=== PATIENT | male | born 1975 | race Caucasian/White ===

== ENCOUNTER 2020-09-08 00:12 | Inpatient (IN) | payer MEDICARE, MEDICAID, SELFPAY ==
[2020-09-08] VITALS (19 sets, daily range): BP systolic 85–105; BP diastolic 55–70; PULSE 70–98; RESP 12–21; TEMP 36.7–37.1; O2SAT 98–100; BMI 29.8
--- NOTE | 2020-09-08 00:19 | CTR_ITS ---
PROCEDURE INFORMATION: Exam: CT Abdomen And Pelvis With Contrast Exam date and time: 09/08/2020 12:19 AM Age: 45 years old Clinical indication: Other: Penile bleeding; Patient HX: Gross bleeding from penis. History of multiple albright catheterizations and recurrent utis. Per caregiver has not had a albright placed in several months. Patient unable to follow breathing instructions due to MR. ; Additional info: Abd pain TECHNIQUE: Imaging protocol: Computed tomography of the abdomen and pelvis with contrast. Radiation optimization: All CT scans at this facility use at least one of these dose optimization techniques: automated exposure control; mA and/or kV adjustment per patient size (includes targeted exams where dose is matched to clinical indication); or iterative reconstruction. Contrast material: OMNI 300; Contrast volume: 95 ml; Contrast route: INTRAVENOUS (IV); COMPARISON: No relevant prior studies available. RADIATION DOSE METRICS: Total DLP (mGy-cm): 1938.08 FINDINGS: Liver: Normal. No mass. Gallbladder and bile ducts: Normal. No calcified stones. No ductal dilation. Pancreas: Normal. No ductal dilation. Spleen: Normal. No splenomegaly. Adrenal glands: Normal. No mass. Kidneys and ureters: Severe right hydronephrosis with no stones suggesting reflux versus outlet obstruction. Stomach and bowel: Unremarkable. No obstruction. No mucosal thickening. Appendix: No evidence of appendicitis. Intraperitoneal space: Unremarkable. No free air. No significant fluid collection. Vasculature: Unremarkable. No abdominal aortic aneurysm. Lymph nodes: Unremarkable. No enlarged lymph nodes. Urinary bladder: 21 cm enlarged suggesting possible outlet obstruction versus neurogenic bladder. Large 9.0 x 8.3 x 6.3 cm hematoma in the dependent portion of the urinary bladder. Reproductive: Nonspecific prostate calcifications within otherwise small prostate. Bones/joints: Unremarkable. No acute fracture. Soft tissues: Unremarkable. CT/CT abdomen pelvis w con* [id number] IMPRESSION: 1. Severe right hydronephrosis with no stones suggesting reflux versus outlet obstruction. 2. 21 cm enlarged suggesting possible outlet obstruction versus neurogenic bladder. 3. Large 9.0 x 8.3 x 6.3 cm hematoma in the dependent portion of the urinary bladder. Radiation Dose CTDIVOL = (mGy): DLP = 1938.08 (mGy-cm)
--- NOTE | 2020-09-08 00:22 | W.ED.GENADLT ---
HPI - General Adult General: Chief complaint: Urogenital-Male Stated complaint: HEMORRHAGE FROM THE GENITALS Time Seen by Provider: 09/08/20 00:17 History of Present Illness: HPI narrative: This patient is a 45-year-old male that has a history of MR lives in a care facility in the local area. Reportedly the patient with the bed unknown problems but upon being bed check they found patient covered in blood. Patient appeared to have blood coming from his penis. Patient does have a history of wearing urinary catheters and has had a tendency to pull those catheters out. But caregivers at the care facility states the patient has not had a urinary catheter in about 5 months. However bleeding does appear to be traumatic. Will do medical evaluation treat as needed Onset (ago): minute(s) Location: genitals Associated symptoms: Deny chest pain, dyspnea, headache(s), nausea, rash, palpitations or vomiting Review of Systems General: Reports: 10 or more systems reviewed and unremarkable except in HPI and below Const: Denies: fever(s), chills, body aches or fatigue Eyes: Denies: change in vision or blurry vision ENMT: Denies: throat pain, hoarseness or mouth pain Card: Denies: chest pain, palpitations, irregular heart rhythm, edema, swelling of feet/ankles or lightheadedness Resp: Denies: dyspnea, productive cough, non-productive cough, wheezing or pain on inspiration GI: Denies: abdominal pain, nausea or vomiting : Reports: other (Penile bleeding); Denies: flank pain, dysuria, urinary frequency, urinary urgency or urinary hesitancy Musc: Denies: neck pain, back pain, extremity pain, extremity swelling, joint pain, joint swelling, joint redness, joint warmth or limited range of motion Skin/Breast: Denies: rash, pruritus, erythema or skin tenderness Neuro: Denies: headache(s), numbness in extremities or weakness in extremities Psych: Denies: anxiety or depression Physical Exam Const: COMMON NORMALS: no acute distress, average body habitus, patient oriented x3, no limitations, healthy appearing, alert and well nourished HENMT: COMMON NORMALS: normocephalic, atraumatic, hearing grossly normal bilaterally, external ears normal, EAC's normal, TM's normal bilaterally, Normal external nose present, Normal nasal mucous membranes and turbinates present, moist oral mucous membranes, oropharynx normal, dentition normal and gingiva normal HEAD & SCALP: normocephalic and atraumatic NOSE: Normal external nose present and Normal nasal mucous membranes and turbinates present EXTERNAL EAR: Yes external ears normal EXTERNAL AUDITORY CANAL: EAC's normal TYMPANIC MEMBRANE: TM's normal bilaterally Neck/C-Spine: COMMON NORMALS: full ROM, no lymphadenopathy, supple, no meningeal signs, no JVD, Thyroid normal and No carotid bruits THYROID: Thyroid normal Chest: COMMONS NORMALS: normal inspection of the chest, normal palpation of entire chest wall, normal inspection of the breasts and normal palpation of the breasts Breast/axilla inspection: Yes normal inspection of the breasts BREAST/AXILLA PALPATION: Yes normal palpation of the breasts Resp: COMMON NORMALS: normal respiratory effort, No retractions, No use of accessory muscles, clear to auscultation bilaterally and percussion normal AUSCULTATION: clear to auscultation bilaterally PERCUSSION: percussion normal Cardio: COMMON NORMALS: no JVD, regular rate, regular rhythm, S1 normal heart sound present, S2 normal heart sound present, No gallops present (Cardio), No clicks present (Cardio), No murmurs present (Cardio), No rub (Cardio) and Peripheral pulses 2+ throughout RATE: regular rate RHYTHM: regular rhythm HEART SOUNDS: S1 normal heart sound present and S2 normal heart sound present PERIPHERAL PULSES: Peripheral pulses 2+ throughout GI: COMMON NORMALS: Normal to inspection, nondistended, normoactive bowel sounds present, Soft to palpation, non-tender, No hepatosplenomegaly present, no masses and no bruits PALPATION: Yes Soft to palpation and Yes No hepatosplenomegaly present : COMMON NORMALS: Yes no CVA tenderness BLADDER/KIDNEY EXAM: Yes no CVA tenderness MALE GROIN/PERINEUM EXAM: Yes other (Patient has significant blood and blood clots in the area of the penis and ) MEATUS: Blood at meatus present Back/Pelvis: COMMON NORMALS: no CVA tenderness, thoracic and lumbar spine normal to inspection, no thoracic nor lumbar tenderness, thoraco-lumbar ROM normal and straight leg raise negative bilaterally Extremity: COMMON NORMALS: normal to inspection, full ROM, capillary refill normal, no joint enlargement, no clubbing, cyanosis or edema, no calf tenderness and no pedal edema Neuro: COMMON NORMALS: patient oriented x3 SENSORIUM/ORIENTATION: Yes alert MENINGEAL SIGNS: Yes no meningeal signs Course Reevaluation(s): Reevaluation #1: I have discussed at length with patient's caregiver is agreeable states understanding patient be admitted Time: 01:49 Consultations: Consultation #1: I did speak with Dr. Simmons who requested patient go ahead and get a Prieto catheter. He believes the CT scan is showing chronic urinary retention with bleeding. He request that we start with an 18-Tajik catheter in case there is any urinary stricture and irrigate bladder to get a lot of blood clots out. May go up and catheter size as needed. He states he will see as a bilingual sales consultant. Requested patient be admitted to the hospitalist for medical management. Time: 01:35 Consultation #2: I have discussed the link with who will admit the patient for medical management. Time: 01:49 Vital Signs: Vital signs: Vital Signs Temperature 98.1 F 09/08/20 00:17 Pulse Rate 82 09/08/20 01:24 Respiratory Rate 16 09/08/20 01:24 Blood Pressure 87/70 09/08/20 00:17 Pulse Oximetry 100 09/08/20 01:24 MDM - General Adult MDM Narrative: Medical decision making narrative: This patient is a 45-year-old male that has a history of MR lives in a care facility in the local area. Reportedly the patient with the bed unknown problems but upon being bed check they found patient covered in blood. Patient appeared to have blood coming from his penis. Patient does have a history of wearing urinary catheters and has had a tendency to pull those catheters out. But caregivers at the care facility states the patient has not had a urinary catheter in about 5 months. However bleeding does appear to be traumatic. Will do medical evaluation treat as needed I have discussed at length with patient's caregiver is agreeable states understanding patient be admitted I did speak with Dr. Simmons who requested patient go ahead and get a Prieto catheter. He believes the CT scan is showing chronic urinary retention with bleeding. He request that we start with an 18-Tajik catheter in case there is any urinary stricture and irrigate bladder to get a lot of blood clots out. May go up and catheter size as needed. He states he will see as a bilingual sales consultant. Requested patient be admitted to the hospitalist for medical management. I have discussed the link with who will admit the patient for medical management. Lab Data: Labs: Lab Results 09/08/20 09/08/20 09/08/20 Range/Units 00:32 00:32 00:32 WBC 8.9 (4.0-10.0) 10^3/ uL RBC 3.38 L (4.1-5.3) 10^6/u L Hgb 10.8 L (11.7-16.6) g/dL Hct 32.6 L (42.0-52.0) % MCV 96.4 H (80-94) fL MCH 32.0 (28.0-34.0) pg MCHC 33.1 (30.0-36.0) g/dL RDW 12.3 (12.1-15.1) % Plt Count 224 (130-400) 10^3/c mm MPV 9.5 (7.4-10.4) fL Neut % (Auto) 79.2 % Lymph % (Auto) 11.7 % [place] % (Auto) 6.8 % Eos % (Auto) 1.9 % Baso % (Auto) 0.3 % Neut # (Auto) 7.01 (1.8-7.7) 10^3/u L Lymph # (Auto) 1.0 (0.8-4.8) 10^3/u L [place] # (Auto) 0.6 (0.2-0.9) 10^3/u L Eos # (Auto) 0.2 (0.0-0.8) 10^3/u L Baso # (Auto) 0.0 (0.0-0.1) 10^3/u L Nucleated RBC % (a uto) 0 % Nucleated RBCs # 0.0 /100WBC PT 13.90 (12.1-14.9) SECO NDS INR 1.04 (0.8-1.2) APTT 26.6 (23.9-36.7) SECO NDS Sodium 138 (136-145) mmol/L Potassium 4.0 (3.5-5.1) mmol/L Chloride 103 (98-107) mmol/L Carbon Dioxide 27 (22-29) mmol/L Anion Gap 12.0 (5-19) BUN 16 (6-20) mg/dL Creatinine 0.9 (0.7-1.2) mg/dL GFR Calculation 90.4 (90-130) mL/min Glucose 141 H (65-115) mg/dL Calculated Osmolal ity 290 (285-295) mOsm/k g Calcium 9.4 (8.5-10.5) mg/dL Total Bilirubin 0.2 (0.15-1.2) mg/dL AST 18 (0-40) U/L ALT 19 (0-41) U/L Alkaline Phosphata se 54 (40-130) IU/L Total Protein 6.4 L (6.6-8.7) g/dL Albumin 4.1 (3.5-5.2) g/dL Globulin 2.3 (1.3-4.6) g/dL Imaging Data^: CT Abd/Pel: Attestation: I personally reviewed and interpreted this imaging study as follows: Radiologist's impression: FINDINGS: Liver: Normal. No mass. Gallbladder and bile ducts: Normal. No calcified stones. No ductal dilation. Pancreas: Normal. No ductal dilation. Spleen: Normal. No splenomegaly. Adrenal glands: Normal. No mass. Kidneys and ureters: Severe right hydronephrosis with no stones suggesting reflux versus outlet obstruction. Stomach and bowel: Unremarkable. No obstruction. No mucosal thickening. Appendix: No evidence of appendicitis. Intraperitoneal space: Unremarkable. No free air. No significant fluid collection. Vasculature: Unremarkable. No abdominal aortic aneurysm. Lymph nodes: Unremarkable. No enlarged lymph nodes. Urinary bladder: 21 cm enlarged suggesting possible outlet obstruction versus neurogenic bladder. Large 9.0 x 8.3 x 6.3 cm hematoma in the dependent portion of the urinary bladder. Reproductive: Nonspecific prostate calcifications within otherwise small prostate. Bones/joints: Unremarkable. No acute fracture. Soft tissues: Unremarkable. CT/CT abdomen pelvis w con* [id number] IMPRESSION: 1. Severe right hydronephrosis with no stones suggesting reflux versus outlet obstruction. 2. 21 cm enlarged suggesting possible outlet obstruction versus neurogenic bladder. 3. Large 9.0 x 8.3 x 6.3 cm hematoma in the dependent portion of the urinary bladder. Discharge Plan Discharge Patient Disposition: Admitted As Inpatient Clinical Impression: Acute urinary retention, Gross hematuria, Obstruction to urinary outflow Condition: Stable Coding Level of Care Code ED Dynamicist for Chg Fwd Exam Comprehensive
[2020-09-08] MEDS: iohexol 300 mg/mL 100 mL Btl IV (00:41)
[2020-09-08 00:53] LABS: Basophils % 0.3 %; Eosinophils # 0.2 10^3/uL (0.0-0.8); Eosinophils % 1.9 %; Hematocrit 32.6 % (42.0-52.0); Hemoglobin 10.8 g/dL (11.7-16.6); Lymphocytes % 11.7 %; Mean Corpuscular HGB Conc 33.1 g/dL (30.0-36.0); Mean Corpuscular Volume 96.4 fL (80-94); Mean Platelet Volume 9.5 fL (7.4-10.4); Monocytes # 0.6 10^3/uL (0.2-0.9); Monocytes % 6.8 %; Neutrophils # 7.01 10^3/uL (1.8-7.7); Neutrophils % 79.2 %; Nucleated Red Blood Cells % 0 %; Platelet Count 224 10^3/cmm (130-400); Red Blood Count 3.38 10^6/uL (4.1-5.3); Red Cell Distribution Width 12.3 % (12.1-15.1); White Blood Count 8.9 10^3/uL (4.0-10.0)
[2020-09-08 01:09] LABS: Alanine Aminotransferase 19 U/L (0-41); Albumin Level 4.1 g/dL (3.5-5.2); Alkaline Phosphatase 54 IU/L (40-130); Aspartate Amino Transferase 18 U/L (0-40); Blood Urea Nitrogen 16 mg/dL (6-20); Calcium 9.4 mg/dL (8.5-10.5); Carbon Dioxide 27 mmol/L (22-29); Chloride 103 mmol/L (98-107); Globulin 2.3 g/dL (1.3-4.6); Glomerular Filtration Rate 90.4 mL/min (90-130); Glucose 141 mg/dL (65-115); INR 1.04 (0.8-1.2); Osmolality Calculated 290 mOsm/kg (285-295); Partial Thromboplastin Time 26.6 SECONDS (23.9-36.7); Sodium 138 mmol/L (136-145); Total Bilirubin 0.2 mg/dL (0.15-1.2); Total Protein 6.4 g/dL (6.6-8.7)
[2020-09-08] MEDS: sodium chloride 0.9% 1,000 ML 999 ML IV ×2 (01:13→09:21)
--- NOTE | 2020-09-08 02:46 | PM.HP ---
Providers/Chief Complaint Chief Complaint: HEMORRHAGE FROM THE GENITALS History of Present Illness 45-year-old male with a past medical history significant for moderate cognitive delay, nalal glioma s/p resection, gastroesophageal reflux disease, and nephrolithiasis with prior outflow obstruction requiring right renal stent in 2008 and percutaneous nephrolithotomy who his presenting to the hospital with hematuria. Patient has a 24 hour caregiver Who provided history. Apparently she was called to the restroom after patient had noted significant gross hematuria. he has required Prieto catheter in the past due to retention however this was removed in June. Has not required intermittent catheterization per caregiver since. He is compliant with his Flomax and Proscar. Follows with [facility]. Laboratory workup arrival showed a WBC of 8.9, hemoglobin 10.8, hematocrit 32.6 and a platelet count of 224 INR 1.04. Sodium 138, potassium 4.0, chloride 103, bicarb 27, BUN 16 and creatinine of 0.9. AST of 18, ALT of [address] phosphatase [address] CT abdomen pelvis was performed which showed severe right hydronephrosis with no stone, bladder appeared to be enlarged measuring 21 cm with a large 9 x 8.3 x 6.3 cm hematoma in the dependent portion of the urinary bladder. Prieto catheter was placed neurology was consulted. Urology was consulted and recommended placement of a Prieto catheter. Shortly after placing patient had over 1600 cc output of gross hematuria. Additionally was passing clots as well. Review of Systems General: Reports: ROS unobtainable due to mental status Medications/Allergies Allergies Allergy/AdvReac Type Severity Reaction Status Date / Time acetaminophen [From [place]] Allergy Unknown Verified 09/08/20 00:25 hydrocodone [From [place]] Allergy Unknown Verified 09/08/20 00:25 Phenothiazines Allergy Unknown Verified 09/08/20 00:25 PFSH Acute PFSH: Medical History (Updated 09/08/20 @ 05:05 by Thao Ramos MD) Impaired cognitive ability Nephrolithiasis Surgical History (Updated 09/08/20 @ 05:06 by Thao Ramos MD) History of ureter stent Hx of cystoscopy Social History (Updated 09/08/20 @ 05:02 by Thao Ramos MD) Smoking and tobacco status: unknown if ever smoked Alcohol intake: unknown Substance/Drug Use: unknown Vitals/I&O/Wt Last Vital Signs Temp 98.1 F 09/08/20 00:17 Pulse 85 09/08/20 02:00 Resp 16 09/08/20 02:00 BP 95/65 09/08/20 02:00 Pulse Ox 100 09/08/20 02:00 Weight last 48 hrs Weight 83.915 kg Physical Exam Narrative: EXAM NARRATIVE: General-alert awake HEENT-grossly unremarkable CVS-regular rate rhythm Chest -clear to auscultation Abdomen- soft nontender nondistended - Prieto catheter placed with gross hematuria noted in bag Extremities-no edema Urinary Catheter Management^: Prieto: Cath Placed During This Visit: yes Urinary Catheter Date of Insertion: 09/08/20 Urinary Catheter Time of Insertion: 02:15 Data : 09/08/20 00:32 09/08/20 00:32 A&P Assessment and plan (1) Gross hematuria: Urology consulted Prieto placed in ER No antiplatelets/ anticoagulation > 1600 cc blood urine output May require CBI initiation Will monitor h/h q6hr NPO NS at 75cc/hr Status: Acute (2) Obstruction to urinary outflow: Resume flomax 0.4 mg PO daily Proscar 5 mg PO daily Prieto placement Status: Acute (3) DVT prophylaxis: SCDS only Status: Acute Attestations Medical Necessity Statement*: Anticipate over 2 midnights stay in hospital for evaluation treatment of gross hematuria Time Spent in Patient Care: Greater than 35 minutes (>than 50% of time spent in counselling and/or direct pt care on unit). Coding Level of Care Code Acute Tapper Balance Wheel Screw Hole for Jovanny Ceja Diagnoses Gross hematuria R31.0 Obstruction to urinary outflow N13.9 DVT prophylaxis Z29.9
--- NOTE | 2020-09-08 05:53 | PC.NURSE ---
When rounding on patient, patient had pulled out IV, pulled off his wristbands and vitals monitoring devices.
[2020-09-08 05:56] LABS: Hematocrit 28.5 % (42.0-52.0); Hemoglobin 9.4 g/dL (11.7-16.6)
[2020-09-08] MEDS: sodium chloride 0.9% 1,000 ML 75 ML IV ×2 (05:58→19:52)
--- NOTE | 2020-09-08 06:57 | PC.NURSE ---
Sitter at door way
--- NOTE | 2020-09-08 07:44 | PC.NURSE ---
Sitter at bedside. NO acute distress or changes. Continue to monitor
--- NOTE | 2020-09-08 08:24 | PC.NURSE ---
Sitter at bedside. No acute changes noted
--- NOTE | 2020-09-08 08:50 | PC.PHAR ---
pt unable to verify medications-pts caregiver verified meds
[2020-09-08] MEDS: tamsulosin 0.4 mg Capsule PO (09:05)
--- NOTE | 2020-09-08 09:11 | PC.NURSE ---
Sitter at bedside. No acute changes noted
--- NOTE | 2020-09-08 09:13 | PC.NURSE ---
albright catheter irrigated with 500ml of NS. copious amounts of blood clots in urine. pt hypotensive. informed ED physician. orders received.
--- NOTE | 2020-09-08 10:07 | PC.NURSE ---
Sitter in room Fluids infusing No acute changes noted
--- NOTE | 2020-09-08 11:18 | PC.NURSE ---
ED sitter has left, since family member in room with pt.
[2020-09-08 11:50] LABS: Hematocrit 27.4 % (42.0-52.0)
--- NOTE | 2020-09-08 15:34 | PM.PN ---
Subjective Subjective: Interval history: Patient was seen in the ER, he complains of left hand pain which he attributing to fall that he sustained in his bathroom yesterday Not complaining of any other complaints Noticed norberto hematuria in his urine bag requested ER physician to do bladder irrigation He is not on CBI for now I have notified Dr. Simmons Requested 2 unit PRBC for 2 g drop in his H&H in last 12 hours Vitals/I&O/Wt Last Vital Signs Temp 98.6 F 09/08/20 12:00 Pulse 79 09/08/20 15:08 Resp 16 09/08/20 15:08 BP 105/62 09/08/20 15:08 Pulse Ox 100 09/08/20 15:08 09/08/20 09/08/20 09/08/20 06:59 14:59 22:59 Intake Total 1000 / 1000 1000 / 1000 Output Total 675 / 675 Balance 325 / 325 1000 / 1000 Weight last 48 hrs Weight 83.915 kg Physical Exam Narrative: EXAM NARRATIVE: Patient is laying comfortably supine in his bed Urine bag with norberto hematuria Complaining of left hand pain otherwise no obvious hematoma or fracture noted S1, S2 sinus rhythm no signs of murmur or fluid overload Abdomen soft with diminished bowel sounds Extremities without edema EOMI, PERRLA Able to follow my commands No acute neurological deficit appreciated during my evaluation Urinary Catheter Management^: Prieto: Cath Placed During This Visit: yes Reason for Continuing Indwelling Catheter: Acute Urinary Retention or Obstruction Urinary Catheter Date of Insertion: 09/08/20 Urinary Catheter Time of Insertion: 02:15 Data : 09/08/20 11:35 09/08/20 00:32 A&P Assessment and plan (1) Acute urinary retention: Status: Acute (2) Gross hematuria: Status: Acute (3) Obstruction to urinary outflow: Status: Acute Additional A&P Information Norberto hematuria Requested 2 unit PRBC for 2 g drop in less than 12 hours Started blood pressure 105 mmHg Currently not on CBI irrigation Requested ER physician to do bladder irrigation in the ER N.p.o. for now Continue normal saline at maintenance rate Urology consulted Avoid DVT prophylaxis with anticoagulating agent Continue Flomax Patient is stating that he sustained a fall in his bathroom yesterday, complaining of left hand pain no obvious signs of fracture edema Will request imaging of thoracolumbar region, CT abdomen pelvis consistent with neurogenic bladder findings, with his recent fall rule out compression fracture Attestations Medical Necessity Statement*: Continue medical management for norberto hematuria Time Spent in Patient Care: 30mins Coding Level of Care Code Acute Senior Software Project Manager for Chg Fwd Diagnoses Acute urinary retention R33.8 Gross hematuria R31.0 Obstruction to urinary outflow N13.9
--- NOTE | 2020-09-08 15:41 | CTR_ITS ---
PROCEDURE INFORMATION: Exam: CT Lumbar Spine Without Contrast Exam date and time: 09/08/2020 3:41 PM Age: 45 years old Clinical indication: Injury or trauma; Fall; Blunt trauma (contusions or hematomas); Additional info: Fall neurogenic bladder TECHNIQUE: Imaging protocol: Computed tomography images of the lumbar spine without contrast. Radiation optimization: All CT scans at this facility use at least one of these dose optimization techniques: automated exposure control; mA and/or kV adjustment per patient size (includes targeted exams where dose is matched to clinical indication); or iterative reconstruction. COMPARISON: CT abdomen pelvis w con* [id number] 09/08/2020 12:36 AM RADIATION DOSE METRICS: Total DLP (mGy-cm): 1952.93 FINDINGS: Tubes, catheters and devices: Prieto catheter noted within the bladder. Vertebrae: No acute fracture. Normal alignment. Discs/Spinal canal/Neural foramina: Degenerative disc disease at L5-S1. Posterior disc bulge at L4-L5. No severe spinal canal stenosis. No significant neural foraminal narrowing. Mild facet arthropathy of the lower lumbar spine. Soft tissues: Unremarkable. CT/CT lumbar spine wo con* [id number] IMPRESSION: No acute osseous abnormalities of the lumbar spine. Radiation Dose CTDIVOL = (mGy): DLP = 1952.93 (mGy-cm)
--- NOTE | 2020-09-08 15:41 | CTR_ITS ---
PROCEDURE INFORMATION: Exam: CT Thoracic Spine Without Contrast Exam date and time: 09/08/2020 3:41 PM Age: 45 years old Clinical indication: Injury or trauma; Fall; Blunt trauma (contusions or hematomas); Additional info: Fall, neurogenic bladder TECHNIQUE: Imaging protocol: Computed tomography images of the thoracic spine without contrast. Radiation optimization: All CT scans at this facility use at least one of these dose optimization techniques: automated exposure control; mA and/or kV adjustment per patient size (includes targeted exams where dose is matched to clinical indication); or iterative reconstruction. COMPARISON: CT abdomen pelvis w con* [id number] 09/08/2020 12:36 AM RADIATION DOSE METRICS: Total DLP (mGy-cm): 1671.85 FINDINGS: Vertebrae: No acute fracture. Normal alignment. Discs/Spinal canal/Neural foramina: No significant disc protrusion. No severe spinal canal stenosis. No significant neural foraminal narrowing. Soft tissues: Unremarkable. CT/CT thoracic spin wo con* [id number] IMPRESSION: Unremarkable CT Spine. Radiation Dose CTDIVOL = (mGy): DLP = 1671.85 (mGy-cm)
[2020-09-08 17:34] LABS: Hematocrit 24.2 % (42.0-52.0); Hemoglobin 7.8 g/dL (11.7-16.6)
--- NOTE | 2020-09-08 19:12 | PM.CONSULT ---
Providers/Reason For Consult Consulting Physician/Specialty*: Urology/Simmons Reason for Consult*: 1. Urinary retention 2. Gross hematuria with bladder clots Attending Physician: Carlos Landaverde MD History of Present Illness History of Present Illness Cabrera Gillette is a 45 year old male evaluated for the first time by me today at the request of the emergency department. Patient is cognitively slow and lives in a residence home near the [facility] and apparently follows with urology at [facility] for history of recurrent urinary retention. He has had multiple episodes where catheter was placed for retention but none of those details are available to us. At times it sounds like he has accidentally or purposefully pulled the catheter out but other times the catheter was removed after what appeared to be therapeutic time. Last night he was admitted through the emergency department after being found with a large amount of what appeared to be bloody urine and clots. There was no evidence of instrumentation. He also was found to be somewhat hypotensive. And he was taken to the emergency department for further evaluation. A CT scan demonstrated a very distended bladder with bilateral hydroureteronephrosis demonstrating what appeared to be more chronic bladder outlet obstructive findings. Bladder was huge. There is a large amount of clot in the bladder. An 18 Ghanaian Prieto catheter was placed and bloody urine was obtained. Intermittent irrigation manually revealed clots. Never got clear. Tonight he still has an [address] There is urine but also clots in the tubing. Recommendation was made for larger catheter, manual irrigation and potentially CBI. PROCEDURE: Large bore Prieto catheter placement with clot evacuation via prolonged manual irrigation. A 22 Ghanaian three-way Prieto catheter was attempted to be placed after the 18 Ghanaian was removed but it was not able to be advanced beyond the bulbar urethra. This point a 20 Ghanaian three-way catheter was able to be advanced into the bladder and 20 cc was placed in the balloon. About 3 L of sterile water was utilized to manually lavage the bladder with a large amount of clot returned. Eventually only very small flecks of clot were irrigated and the irrigation remained for the most part clear. I expect that there still remains some clots but the catheter was functioning well. Further irrigation was recommended for the nursing staff overnight as needed. Continuous bladder irrigation with normal saline was set up and the rate was initially fast with tapering off as the urine/efflux cleared. Catheter was secured with a StatLock to his right thigh. He tolerated procedure very well. Recommendations: 1. Continue CBI overnight 2. Manual irrigation to clear more clots. 3. Medical management via hospitalist service. 4. Consider flexible bedside cystoscopy pending outcome of CBI. Review of Systems Const: Denies: fever(s) or chills Eyes: Denies: change in vision ENMT: Denies: odynophagia or hoarseness Card: Denies: chest pain or edema Resp: Denies: dyspnea or wheezing GI: Reports: abdominal pain; Denies: vomiting : Reports: difficulty urinating and hematuria Musc: Reports: other (Was complaining of some hand pain after falling in the shower.) Skin/Breast: Denies: rash or sores Neuro: Denies: Slurred speech present Psych: Reports: other (Mentally slow) Clark/Lymph: Reports: easy bleeding All/Imm: Denies: acute wheezing Meds/Allergies Home Medications and Allergies Home Medications Medication Instructions Recorded Confirmed Last Taken Type Aqua Tears 1 drp OPHTHALMIC (EYE) BID 09/08/20 09/08/20 Unknown History aspirin [Aspir-81] 81 mg PO DAILY@09/08/20 09/08/20 Unknown History benztropine 1 mg PO BID@09/08/20 09/08/20 Unknown History docusate sodium [DOK] 200 mg PO BID@09/08/20 09/08/20 Unknown History doxepin 75 mg PO DAILY@09/08/20 09/08/20 Unknown History fenofibrate nanocrystallized 48 mg PO DAILY@09/08/20 09/08/20 Unknown History finasteride 5 mg PO DAILY@09/08/20 09/08/20 Unknown History lamotrigine 200 mg PO BID@09/08/20 09/08/20 Unknown History levocetirizine 5 mg PO DAILY@09/08/20 09/08/20 Unknown History lithium carbonate 150 mg PO DAILY@09/08/20 09/08/20 Unknown History lithium carbonate 300 mg PO BID@09/08/20 09/08/20 Unknown History omeprazole 20 mg PO DAILY@09/08/20 09/08/20 Unknown History paliperidone 3 mg PO DAILY@09/08/20 09/08/20 Unknown History paliperidone 9 mg PO DAILY@09/08/20 09/08/20 Unknown History polyethylene glycol 3350 17 g PO DAILY@09/08/20 09/08/20 Unknown History quetiapine 150 mg PO DAILY@09/08/20 09/08/20 Unknown History tamsulosin 0.8 mg PO DAILY@09/08/20 09/08/20 Unknown History Allergies Allergy/AdvReac Type Severity Reaction Status Date / Time acetaminophen [From [place]] Allergy Unknown Verified 09/08/20 00:25 hydrocodone [From [place]] Allergy Unknown Verified 09/08/20 00:25 Phenothiazines Allergy Unknown Verified 09/08/20 00:25 Current Medications Current Medications Generic Name Dose Route Start Last Admin Trade Name Freq PRN Reason Stop Dose Admin Sodium Chloride 1,000 mls @ 75 mls/hr 09/08/20 05:15 09/08/20 05:58 Sodium Chloride 0.9% IV 75 mls/hr .[id number] MARY Administration Tamsulosin HCl 0.4 mg 09/08/20 09:00 09/08/20 09:05 Tamsulosin 0.4 Mg Capsule PO 0.4 mg DAILY MARY Administration PFSH Acute PFSH: Medical History (Updated 09/08/20 @ 19:24 by Enoch Simmons MD) Bilateral hydronephrosis Impaired cognitive ability Nephrolithiasis History of percutaneous nephrostolithotomy previously Urinary retention Surgical History History of ureter stent Hx of cystoscopy Social History Smoking and tobacco status: unknown if ever smoked Alcohol intake: unknown Substance/Drug Use: unknown Vitals/I&O/Wt Last Vital Signs Temp 98.8 F 09/08/20 18:15 Pulse 77 09/08/20 18:15 Resp 16 09/08/20 18:15 BP 96/62 09/08/20 18:15 Pulse Ox 100 09/08/20 18:15 09/08/20 09/08/20 09/08/20 06:59 14:59 22:59 Intake Total 1000 / 1000 1000 / 1000 Output Total 675 / 675 1200 / 1200 Balance 325 / 325 1000 / 1000 -1200 / -200 Weight last 48 hrs Weight 185 lb Physical Exam Const: COMMON NORMALS: no acute distress and average body habitus ORIENTATION/CONSCIOUSNESS: Yes awake HENMT: COMMON NORMALS: normocephalic HEAD & SCALP: normocephalic Eye: OTHER: No discharge Neck/C-Spine: COMMON NORMALS: full ROM Lymph: LYMPHATIC: no lymphadenopathy noted and no lymphedema noted Resp: COMMON NORMALS: normal respiratory effort EFFORT & INSPECTION: No tachypneic and No respiratory distress Cardio: COMMON NORMALS: regular rate and regular rhythm RATE: regular rate RHYTHM: regular rhythm GI: COMMON NORMALS: Soft to palpation, non-tender and no masses PALPATION: Yes Soft to palpation : COMMON NORMALS: Yes no CVA tenderness, Yes normal external exam, Yes Testes normal and Yes scrotum normal BLADDER/KIDNEY EXAM: Yes no CVA tenderness PENIS: normal penis and circumcised MEATUS: meatus normal Back/Pelvis: COMMON NORMALS: no CVA tenderness Neuro: OTHER: No unilateral weakness or deficits obviously on exam Psych: COMMON NORMALS: cooperative ATTITUDE: Yes calm MEMORY/COGNITION: Yes cognition grossly impaired Urinary Catheter Management^: Prieto: Cath Placed During This Visit: yes Reason for Continuing Indwelling Catheter: Acute Urinary Retention or Obstruction Urinary Catheter Date of Insertion: 09/08/20 Urinary Catheter Time of Insertion: 02:15 A&P Assessment and plan (1) Gross hematuria: Acute onset of gross hematuria and clots etiology unclear. Large amount of clot seen on 3 L of manually irrigated/lavage the bladder sterile water for clot clearance and CBI set up. We will continue CBI as needed. Status: Acute (2) Bilateral hydronephrosis: Appears to be secondary to bladder outlet obstruction with a hugely distended bladder and I expect that is a chronic change. Status: Acute (3) Urinary retention: CT scan in the bladder. Urinary retention. Likely neurogenic. Evidence of chronic impact based on hydronephrosis bilaterally. Status: Acute Consult Attestations Medical Necessity Statement: Requiring CBI and catheter irrigation not available on outpatient basis. Coding Level of Care Code Acute Collar Band Creaser for [facility] Fwd Diagnoses Gross hematuria R31.0 Bilateral hydronephrosis N13.30 Urinary retention R33.9
[2020-09-08] MEDS: finasteride 5 mg Tablet PO (22:41)
[2020-09-08 23:36] LABS: Hematocrit 26.3 % (42.0-52.0); Hemoglobin 8.5 g/dL (11.7-16.6)
[2020-09-09] VITALS (17 sets, daily range): BP systolic 100–130; BP diastolic 64–85; PULSE 76–98; RESP 12–18; TEMP -13.1–37.9; O2SAT 92–100
[2020-09-09] MEDS: sodium chloride 0.9% (100 ml) 100 ML 150 ML (06:33)
--- NOTE | 2020-09-09 07:08 | PC.NURSE ---
Called Lab and spoke with Chetna to remind them that we need blood drawn at 0740. blood administration ended at 0640.
--- NOTE | 2020-09-09 07:08 | PC.NURSE ---
Irrigated albright two times during shift due to albright clotting off. First time being irrigated 250mL of sterile water was used. 250mL was removed as well. The second time albright was irrigated, 50mL was used and was removed as well. Neither time clots were removed, but were moved within the bladder so that albright would drain.
--- NOTE | 2020-09-09 07:48 | PM.MISC ---
Miscellaneous Note Purpose of Documentation: Update Note: CBI has been running at a rapid pace all night otherwise his catheter has clotted off. Manual irrigation has been required on multiple accounts. Recommend trip to the operating room this afternoon when time is available for clot evacuation fulguration as needed. I expect that he still just has a large amount of clot in his bladder that is leading to the difficulty with continued need for CBI. Will contact his caregivers for consent.
[2020-09-09 07:50] LABS: Basophils % 0.3 %; Eosinophils % 0.4 %; Hematocrit 28.2 % (42.0-52.0); Hemoglobin 9.5 g/dL (11.7-16.6); Lymphocytes # 0.9 10^3/uL (0.8-4.8); Lymphocytes % 13.7 %; Mean Corpuscular HGB Conc 33.7 g/dL (30.0-36.0); Mean Corpuscular Hemoglobin 31.4 pg (28.0-34.0); Mean Corpuscular Volume 93.1 fL (80-94); Mean Platelet Volume 9.1 fL (7.4-10.4); Monocytes # 0.4 10^3/uL (0.2-0.9); Monocytes % 6.1 %; Neutrophils # 5.43 10^3/uL (1.8-7.7); Neutrophils % 79.2 %; Nucleated Red Blood Cells % 0 %; Platelet Count 178 10^3/cmm (130-400); Red Blood Count 3.03 10^6/uL (4.1-5.3); Red Cell Distribution Width 14.1 % (12.1-15.1); White Blood Count 6.9 10^3/uL (4.0-10.0)
--- NOTE | 2020-09-09 08:24 | PC.NURSE ---
irrigated CBI albright per Dr Simmons
[2020-09-09 08:42] LABS: Anion Gap 12.8 (5-19); Blood Urea Nitrogen 9 mg/dL (6-20); Calcium 8.3 mg/dL (8.5-10.5); Carbon Dioxide 24 mmol/L (22-29); Chloride 105 mmol/L (98-107); Glomerular Filtration Rate 144.4 mL/min (90-130); Glucose 86 mg/dL (65-115); Osmolality Calculated 284 mOsm/kg (285-295); Potassium 3.8 mmol/L (3.5-5.1); Sodium 138 mmol/L (136-145)
--- NOTE | 2020-09-09 10:20 | PC.CHAP ---
Pastoral Care Encounter/Spiritual Assessment Type of Contact [] Declined literacy teacher visit [] Patient/Family/Request visit [] Outpatient visit [] Follow-up visit [] Physician referral [] Code/Alert [] Routine visit [] Staff referral [] Actively dying [] Patient sleeping [] Family support [] [] Out of room [] Palliative care [] [] Receiving care in room [] Pre-surgical visit [] Trauma [] Long length of stay [] ICU visit [x] Other: with Staff Relational/Emotional Strength [] Patient feels connected with others/family/visitors/staff [] Distress [] Loneliness/isolation [] Abandonment Spirituality of Patient [] Person of [place] [] Attends Taoism of their [place] [] Believes in Prayer [] Reads Bible or Anabaptist materials [] There are Spiritual issues to be addressed Motor Vehicles Inspector Interventions [] Prayer [] Active listening [] Non-anxious presence [] Spiritual/emotional support [] Crisis/trauma care [] Spiritual counseling [] Bereavement support [] Provided bereavement packet [] Provided Bible/devotional materials [] Provided toy/stuffed animal, coloring book to patient or family member [] Provided Communion [] Anointing/[place] [] Salvation [] Completed spiritual assessment [] Other: Impact on Illness or Injury [] Angry [] Fearful [] Anxious [] Often cries [] Exhaustion [] Unable to work [] Unable to attend adventist [] Unable to walk/stand [] Unable to read [] Unable to drive [] Unable to eat/drink [] Unable to sleep [] Unable to be with family [] Patient intubated [] Other: Summary with Staff Time spent with patient 5 mins
[2020-09-09] MEDS: sodium chloride 0.9% 1,000 ML 75 ML IV (10:56)
--- NOTE | 2020-09-09 14:21 | PC.NURSE ---
patient taken to OR
--- NOTE | 2020-09-09 15:00 | PM.PN ---
Subjective Subjective: Interval history: Required 6 bags of CVA last night and 4 in the morning on multiple manual bladder irrigation because of recurrent catheter clotting Dr. Simmons planning to take him to the OR this afternoon Vitals/I&O/Wt Last Vital Signs Temp 100.3 F H 09/09/20 14:26 Pulse 98 09/09/20 14:26 Resp 18 09/09/20 14:26 BP 109/68 09/09/20 14:26 Pulse Ox 98 09/09/20 14:26 09/09/20 09/09/20 09/09/20 06:59 14:59 22:59 Intake Total 250 / 2350 1100 / 1100 Output Total 50 / 1250 Balance 200 / 1100 1100 / 1100 Weight last 48 hrs Weight 83.915 kg Physical Exam Narrative: EXAM NARRATIVE: Patient lying comfortably in his bed saturating well on room air EOMI, PERRLA Cognitive impairment S1, S2 sinus rhythm No signs of heart failure or fluid overload Abdomen soft nontender Patient is still complaining of left hand pain however no signs of fracture no edema Lower extremity pain no signs of edema gangrene ulcer No new neurological deficits appreciated Prieto catheter with norberto hematuria Urinary Catheter Management^: Prieto: Cath Placed During This Visit: yes Reason for Continuing Indwelling Catheter: Acute Urinary Retention or Obstruction Urinary Catheter Date of Insertion: 09/08/20 Urinary Catheter Time of Insertion: 02:15 3-way Urethral CBI: Cath Placed During This Visit: yes Reason for Continuing Indwelling Catheter: Acute Urinary Retention or Obstruction Urinary Catheter Date of Insertion: 09/08/20 Urinary Catheter Time of Insertion: 17:30 Data : 09/09/20 07:40 09/09/20 07:40 A&P Assessment and plan (1) Impaired cognitive ability: Status: Acute (2) Bilateral hydronephrosis: Status: Acute (3) Urinary retention: Status: Acute (4) Gross hematuria: Status: Acute Additional A&P Information Norberto hematuria Status post 1 unit PRBC today hemoglobin 9.5, hemodynamically stable Required 10 bags with CBI and multiple manual irrigation of bladder because of recurrent clots He is n.p.o. Dr. Simmons planning to take him to the OR this afternoon for cystoscopy Continue normal saline maintenance rate to avoid hypotension Continue Flomax CT scan of his spine did not show any fractures or acute findings We will repeat imaging over the weekend to see resolution of his hydronephrosis and hematoma DVT prophylaxis: Contraindicated Blood sugar 86 we will start him on D5 normal saline at maintenance rate Full code Attestations Medical Necessity Statement*: Continue current medical management for persistent prior hematuria Time Spent in Patient Care: 15 to 30 minutes Coding Level of Care Code Acute Digital Marketing Consultant for [facility] Fwd Diagnoses Impaired cognitive ability R41.89 Bilateral hydronephrosis N13.30 Urinary retention R33.9 Gross hematuria R31.0
--- NOTE | 2020-09-09 15:03 | P.ANESASSM_ITS ---
Pre-Anesthetic Assessment Pre-Anesthetic Assessment: Height/Weight: Height 1.68 m Weight 83.915 kg Temp Pulse Resp BP Pulse Ox 100.3 F H 98 18 109/68 98 09/09/20 14:26 09/09/20 14:26 09/09/20 14:26 09/09/20 14:26 09/09/20 14:26 Preop Diagnosis: Blood clots Proposed Procedure: Operation Date: 09/09/20 15:20 Proposed Procedures s Clot Evacuation Fulguration(Not Applicable) - Enoch Simmons MD p Cystoscopy(Not Applicable) - Enoch Simmons MD Familial anesthetic complications: None Last intake: > 8 hrs Social: Social History: No alcohol and No tobacco Exam: Pre-Anes Outpt Exam: alert, clear to auscultation bilaterally and regular rate & rhythm Airway: Cervical ROM: WNL MP: 2 CV/HEM: CV/HEM: Anemia (2 units prbcs) : Comments: urinary retention w/ R hydronphrosis GI: GI: GERD Neuropsych: Comments: Mentral retardation Anesthetic Plan: ASA status: 2 Anesthesia: General Risk of > 500 ml blood loss (7ml/kg in children): No Other Pertinent Information: history obtained from chart and mother Tasha bland- Meds/Allergies Current Medications: Current Medications Generic Name Dose Route Start Last Admin Trade Name Freq PRN Reason Stop Dose Admin Finasteride 5 mg 09/08/20 21:00 09/08/20 22:41 Finasteride 5 Mg Tablet PO 5 mg BEDTIME MARY Administration Sodium Chloride 1,000 mls @ 75 ml s/hr 09/08/20 05:15 09/09/20 10:56 Sodium Chloride 0.9% IV 75 mls/hr .[id number] MARY Administration Tamsulosin HCl 0.4 mg 09/08/20 09:00 09/09/20 10:44 Tamsulosin 0.4 M g Capsule PO Not Given DAILY MARY PFSH Anesthesia PFSH: Medical History (Updated 09/08/20 @ 19:24 by Enoch Simmons MD) Bilateral hydronephrosis Impaired cognitive ability Nephrolithiasis History of percutaneous nephrostolithotomy previously Urinary retention Surgical History History of ureter stent Hx of cystoscopy Social History Smoking and tobacco status: unknown if ever smoked Alcohol intake: unknown Substance/Drug Use: unknown Data Anesthesia CBC & Chem 7: 09/09/20 07:40 09/09/20 07:40 Other Labs: Laboratory Results - last 48 hr 09/08/20 09/08/20 09/08/20 00:32 00:32 00:32 WBC 8.9 RBC 3.38 L Hgb 10.8 L Hct 32.6 L MCV 96.4 H MCH 32.0 MCHC 33.1 RDW 12.3 Plt Count 224 MPV 9.5 Neut % (Auto) 79.2 Lymph % (Auto) 11.7 Caswell % (Auto) 6.8 Eos % (Auto) 1.9 Baso % (Auto) 0.3 Neut # (Auto) 7.01 Lymph # (Auto) 1.0 [place]well # (Auto) 0.6 Eos # (Auto) 0.2 Baso # (Auto) 0.0 Nucleated RBC % (auto) 0 Nucleated RBCs # 0.0 PT 13.90 INR 1.04 APTT 26.6 Sodium 138 Potassium 4.0 Chloride 103 Carbon Dioxide 27 Anion Gap 12.0 BUN 16 Creatinine 0.9 GFR Calculation 90.4 Glucose 141 H Calculated Osmolality 290 Calcium 9.4 Total Bilirubin 0.2 AST 18 ALT 19 Alkaline Phosphatase 54 Total Protein 6.4 L Albumin 4.1 Globulin 2.3 Blood Type Rho(D) Type Antibody Screen Crossmatch 09/08/20 09/08/20 09/08/20 00:32 00:32 05:44 WBC RBC Hgb 9.4 L Hct 28.5 L MCV MCH MCHC RDW Plt Count MPV Neut % (Auto) Lymph % (Auto) [place] % (Auto) Eos % (Auto) Baso % (Auto) Neut # (Auto) Lymph # (Auto) [place] # (Auto) Eos # (Auto) Baso # (Auto) Nucleated RBC % (auto) Nucleated RBCs # PT INR APTT Sodium Potassium Chloride Carbon Dioxide Anion Gap BUN Creatinine GFR Calculation Glucose Calculated Osmolality Calcium Total Bilirubin AST ALT Alkaline Phosphatase Total Protein Albumin Globulin Blood Type A Negative A Negative Rho(D) Type Negative / 0 Negative / 0 Antibody Screen Negative Crossmatch See Detail 09/08/20 09/08/20 09/08/20 11:35 17:17 23:19 WBC RBC Hgb 8.0 L 7.8 L 8.5 L Hct 27.4 L 24.2 L 26.3 L MCV MCH MCHC RDW Plt Count MPV Neut % (Auto) Lymph % (Auto) [place] % (Auto) Eos % (Auto) Baso % (Auto) Neut # (Auto) Lymph # (Auto) [place] # (Auto) Eos # (Auto) Baso # (Auto) Nucleated RBC % (auto) Nucleated RBCs # PT INR APTT Sodium Potassium Chloride Carbon Dioxide Anion Gap BUN Creatinine GFR Calculation Glucose Calculated Osmolality Calcium Total Bilirubin AST ALT Alkaline Phosphatase Total Protein Albumin Globulin Blood Type Rho(D) Type Antibody Screen Crossmatch 09/09/20 09/09/20 07:40 07:40 WBC 6.9 RBC 3.03 L Hgb 9.5 L Hct 28.2 L MCV 93.1 MCH 31.4 MCHC 33.7 RDW 14.1 Plt Count 178 MPV 9.1 Neut % (Auto) 79.2 Lymph % (Auto) 13.7 [place] % (Auto) 6.1 Eos % (Auto) 0.4 Baso % (Auto) 0.3 Neut # (Auto) 5.43 Lymph # (Auto) 0.9 [place] # (Auto) 0.4 Eos # (Auto) 0.0 Baso # (Auto) 0.0 Nucleated RBC % (auto) 0 Nucleated RBCs # 0.0 PT INR APTT Sodium 138 Potassium 3.8 Chloride 105 Carbon Dioxide 24 Anion Gap 12.8 BUN 9 Creatinine 0.6 L GFR Calculation 144.4 H Glucose 86 Calculated Osmolality 284 L Calcium 8.3 L Total Bilirubin AST ALT Alkaline Phosphatase Total Protein Albumin Globulin Blood Type Rho(D) Type Antibody Screen Crossmatch Cardiac Studies: No Data to Display
--- NOTE | 2020-09-09 15:03 | PM.PN ---
Subjective Subjective: Interval history: Required full bore CBI overnight. Manual irrigation intermittently. Looks better this afternoon. No fever or chills. Has been clinically stable. Plan cystoscopy under anesthesia fulguration if necessary clot evacuation if necessary. I reviewed the procedure in detail with his mother who is his guardian. Explained in detail the rationale for proceeding, potential findings. Perioperative expectations limitations reviewed informed consent was obtained. Vitals/I&O/Wt Last Vital Signs Temp 100.3 F H 09/09/20 14:26 Pulse 98 09/09/20 14:26 Resp 18 09/09/20 14:26 BP 109/68 09/09/20 14:26 Pulse Ox 98 09/09/20 14:26 09/09/20 09/09/20 09/09/20 06:59 14:59 22:59 Intake Total 250 / 2350 1100 / 1100 Output Total 50 / 1250 Balance 200 / 1100 1100 / 1100 Weight last 48 hrs Weight 185 lb Physical Exam Narrative: EXAM NARRATIVE: Alert and cooperative. Pleasant throughout exam. Cognitively slow. Does respond appropriately to questions though. Neck good range of motion Cardiovascular regular rate and rhythm Respiratory no labored respiration or wheezing. Abdomen is soft and nontender. No distention of the bladder. Catheter is draining more clear urine than earlier. Normal genitourinary exam Extremities good range of motion. No obvious edema Skin no jaundice rashes or lesions Urinary Catheter Management^: Prieto: Cath Placed During This Visit: yes Reason for Continuing Indwelling Catheter: Acute Urinary Retention or Obstruction Urinary Catheter Date of Insertion: 09/08/20 Urinary Catheter Time of Insertion: 02:15 3-way Urethral CBI: Cath Placed During This Visit: yes Reason for Continuing Indwelling Catheter: Acute Urinary Retention or Obstruction Urinary Catheter Date of Insertion: 09/08/20 Urinary Catheter Time of Insertion: 17:30 Data : 09/09/20 07:40 09/09/20 07:40 A&P Assessment and plan (1) Gross hematuria: Improved this afternoon. Still requiring full bore CBI this morning Plans for cystoscopy under anesthesia, clot evacuation of persistent, fulguration if necessary Status: Acute (2) Urinary retention: Evidence of chronic urinary retention with bilateral hydronephrosis. Bladder was hugely distended without a lot of discomfort. Do not really have any good details regarding his previous work-up but he had been followed by urology in the past at [facility] in [place]. Status: Acute (3) Impaired cognitive ability: Status: Acute (4) Bilateral hydronephrosis: Secondary to beta bladder outlet obstruction Status: Acute Attestations Medical Necessity Statement*: Surgery required today as above Coding Level of Care Code Acute Substance Abuse Nurse for [facility] Fwd Diagnoses Gross hematuria R31.0 Urinary retention R33.9 Impaired cognitive ability R41.89 Bilateral hydronephrosis N13.30
--- NOTE | 2020-09-09 15:10 | XR_ITS ---
WS: [id number] Portable AP upright chest, 09/09/2020 Clinical Data: fever Comparison: None. Findings: No nodules, masses or effusions are seen. The heart is normal. The pulmonary vascularity is not increased. No pneumonia or pneumothorax is seen. XR/XR chest 1V portable [id number] Impression: Negative chest.
--- NOTE | 2020-09-09 16:52 | P.OP_ITS ---
Operative Report Date of procedure: September 09, 2020 Pre-op Diagnosis: Clot retention Post-op diagnosis: same Procedure Done: 1. Cystoscopy clot evacuation Specimens removed/disposition: Old blood clots Pathology: none sent Surgeon: Iris Anesthesia: MAC Estimated blood loss: None Urine output: Not measured Complications: None Findings: Few old blood clots. Flaccid appearing bladder with chronic inflammatory changes consistent with UTI no active bleeding Condition: stable Disposition: PACU Brief History: Cabrera is a very pleasant 45-year-old cognitively challenged young man who was admitted with clot urinary retention with a large amount of blood clot seen in the bladder on CT scan and a very distended bladder with bilateral hydronephrosis reflecting chronic outlet problem. It is presumed base d on his history of recurrent retention that he probably has a neurogenic component. He also did not have a lot of pain associated with the very distended bladder. He was aggressively managed with clot evacuation last night but required high flow CBI until early this afternoon. His urine seemed clear pretty well after that. He was posted for cystoscopy under anesthesia due to his cognitive status to make sure there is no underlying lesion likely to rebleed and to confirm that his bladder was free of clots at completion. Procedure: After urgent evaluation examination and obtaining of informed consent from his mother via phone consent witness with nursing staff and anesthesia he was taken to the operating suite on 09/09/2020 where MAC anesthesia was administered without difficulty. He was prepped and draped in usual sterile fashion in dorsolithotomy position being careful attention to avoiding pressure points after appropriate timeout was performed, SCDs confirmed to be functioning, preoperative antibiotics administered, beta-timur protocol confirmed. 17 Monegasque cystoscope with 30 degree lens was introduced into urethra meatus and advanced into the bladder. The urethra looked normal. Prostate was small. Bladder showed a flaccid large capacity appearance with multiple areas of inflammatory change consistent likely with recent cystitis. There were no other lesions identified. No active bleeding was noted. There were some old clots that were evacuated with an Ellik evacuator. No additional treatment was required. The bladder was drained with a 18 Monegasque three-way Prieto catheter and light CBI was initiated for prophylaxis. Tolerated procedure well without complications and was awakened in the operating room and returned to the recovery in stable condition. PLANS: 1. Transfer back to the floor. 2. He will need to maintain a Prieto catheter but I expect his CBI can be weaned off pretty quickly tonight and tomorrow. 3. He is due for a second Moderna COVID-19 vaccination tomorrow per his caregivers report and his mother's report. We will see if we can help facilitate that here if it is possible.
--- NOTE | 2020-09-09 16:56 | ANE.PACU2 ---
Inpatient post-anesthesia follow up: Airway intact: Yes Vital signs: Temperature 98.3 F Pulse Rate [Monito r] 98 Pulse Rate 90 Respiratory Rate 12 Blood Pressure [Le ft Arm] 87/70 Blood Pressure 106/70 Pulse Oximetry 100 Oxygen Delivery Me thod Simple Mask Oxygen Flow Rate 8 Fraction of Inspir ed Oxygen Hydration adequate: Yes Nausea and vomiting: No Pain level: 2 Mental status: Baseline
[2020-09-09] MEDS: cefTRIAXone 1,000 MG in sodium chloride 0.9% (plus) 50 ML 100 MG IV (18:12)
[2020-09-09] MEDS: dextrose 5%-sod chloride 0.9% 1,000 ML 75 ML IV (18:12)
[2020-09-09 20:56] LABS: Hematocrit 25.7 % (42.0-52.0); Hemoglobin 8.6 g/dL (11.7-16.6)
[2020-09-10] VITALS (8 sets, daily range): BP systolic 104–176; BP diastolic 63–94; PULSE 78–96; RESP 16–18; TEMP 36.6–37.3; O2SAT 95–99
--- NOTE | 2020-09-10 02:02 | PC.NURSE ---
This RN irrigated patient't albright catheter with 150mL of sterile water. A large amount of large blood clots were removed. Patient tolerated irrigation well.
[2020-09-10 06:56] LABS: Basophils % 0.3 %; Eosinophils # 0.2 10^3/uL (0.0-0.8); Hematocrit 24.2 % (42.0-52.0); Hemoglobin 8.1 g/dL (11.7-16.6); Lymphocytes # 1.3 10^3/uL (0.8-4.8); Lymphocytes % 20.9 %; Mean Corpuscular HGB Conc 33.5 g/dL (30.0-36.0); Mean Corpuscular Hemoglobin 30.9 pg (28.0-34.0); Mean Corpuscular Volume 92.4 fL (80-94); Mean Platelet Volume 9.8 fL (7.4-10.4); Monocytes # 0.6 10^3/uL (0.2-0.9); Monocytes % 9.9 %; Neutrophils # 4.15 10^3/uL (1.8-7.7); Neutrophils % 65.4 %; Nucleated Red Blood Cells % 0 %; Platelet Count 186 10^3/cmm (130-400); Red Blood Count 2.62 10^6/uL (4.1-5.3); Red Cell Distribution Width 14.6 % (12.1-15.1); White Blood Count 6.4 10^3/uL (4.0-10.0)
--- NOTE | 2020-09-10 07:07 | PM.PN ---
Subjective Subjective: Interval history: UROLOGY follow-up: Postop day #1 cystoscopy with clot evacuation. Minimal clot remained at that time. No definitive lesions identified. More consistent with chronic diffuse inflammatory changes probably with acute cystitis on top of that leading to bleeding. Has not had recurrence of bleeding overnight. CBI is running at a very low rate. See labs below He will require Prieto catheter at discharge. I reviewed with his mother that his bladder just is not working well based on the over distention identified on CT scan, bilateral hydronephrosis, and lack of significant acute symptoms other than the bleeding. We have been told that he follows with urology at [facility]. He may end up needing a suprapubic tube based on chronic flaccid bladder. From a urologic perspective I think once the hospital service feels comfortable he can be discharged back to his residential care. We are pursuing the possibility of getting his second maternal shot which is due today but will hold if there is any concern about the appropriateness of that based on his current health status. Vitals/I&O/Wt Last Vital Signs Temp 98.5 F 09/10/20 04:00 Pulse 80 09/10/20 04:00 Resp 16 09/10/20 04:00 BP 105/63 09/10/20 04:00 Pulse Ox 99 09/10/20 04:00 09/09/20 09/10/20 09/10/20 22:59 06:59 14:59 Intake Total 1050 / 2150 Output Total 0 / 0 775 / 775 Balance 1050 / 2150 -775 / 1375 Physical Exam Narrative: EXAM NARRATIVE: Alert, cooperative, no acute distress Neck: Good range of motion Abdomen: Soft nontender no palpable masses Genitourinary: Catheter in place, draining for the most part clear light yellow urine with low rate CBI Extremities: No significant edema Urinary Catheter Management^: Prieto: Cath Placed During This Visit: yes Reason for Continuing Indwelling Catheter: Acute Urinary Retention or Obstruction Urinary Catheter Date of Insertion: 09/08/20 Urinary Catheter Time of Insertion: 02:15 3-way Urethral CBI: Cath Placed During This Visit: yes, but has since been removed by the nurse Reason for Continuing Indwelling Catheter: Acute Urinary Retention or Obstruction Urinary Catheter Date of Insertion: 09/09/20 Urinary Catheter Time of Insertion: 16:40 Date Urinary Catheter Removed: 09/09/20 Time Urinary Catheter Discontinued: 16:35 Data : 09/10/20 05:25 09/09/20 07:40 Micro: Microbiology 09/09/20 18:11 Blood Culture - Preliminary Blood SPECIMEN COLLECTED 09/09/20 18:00 Blood Culture - Preliminary Blood SPECIMEN COLLECTED A&P Assessment and plan (1) Gross hematuria: No recurrence of clot retention. CBI running at low rate. 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 Status: Acute (3) Impaired cognitive ability: Status: Acute (4) Bilateral hydronephrosis: Secondary to chronic bladder outlet obstruction Status: Acute Attestations Medical Necessity Statement*: Significantly improved. No recurrent clot retention. Can wean off CBI and that occurs from a urologic perspective he can be discharged. Additional medical issues being addressed by the hospitalist service. See their notes Coding Level of Care Code Acute Educational Assistant Teacher for Jovanny Ceja Diagnoses Gross hematuria R31.0 Urinary retention R33.9 Impaired cognitive ability R41.89 Bilateral hydronephrosis N13.30
[2020-09-10 07:19] LABS: Anion Gap 10.7 (5-19); Blood Urea Nitrogen 10 mg/dL (6-20); Carbon Dioxide 26 mmol/L (22-29); Chloride 106 mmol/L (98-107); Glomerular Filtration Rate 144.4 mL/min (90-130); Glucose 107 mg/dL (65-115); Osmolality Calculated 288 mOsm/kg (285-295); Potassium 3.7 mmol/L (3.5-5.1); Sodium 139 mmol/L (136-145)
[2020-09-10] MEDS: tamsulosin 0.4 mg Capsule PO (09:01)
[2020-09-10] MEDS: dextrose 5%-sod chloride 0.9% 1,000 ML 75 ML IV (09:03)
--- NOTE | 2020-09-10 14:36 | PM.PN ---
Subjective Subjective: Interval history: Patient was seen and examined this morning, low-grade CBI at the bedside, draining pink-colored urine, it has not totally cleared yet, hemoglobin slightly drifting down would like to monitor for at least 1 more day, yesterday he did not require any Tylenol for his temperature of 100.3 I highly doubt the accuracy and validity of that set of vitals, I would go ahead and discontinue ceftriaxone his leukocytosis has not worsened and he has stayed afebrile. He can get his second dose of vaccine/Moderna Vitals/I&O/Wt Last Vital Signs Temp 98.9 F 09/10/20 12:00 Pulse 85 09/10/20 12:00 Resp 18 09/10/20 12:00 BP 176/80 09/10/20 12:00 Pulse Ox 95 09/10/20 12:00 09/09/20 09/10/20 09/10/20 22:59 06:59 14:59 Intake Total 1050 / 2150 1000 / 1000 Output Total 0 / 0 775 / 775 Balance 1050 / 2150 -775 / 1375 1000 / 1000 Physical Exam Narrative: EXAM NARRATIVE: Patient was laying supine without any active discomfort he was very pleasant and cooperative during my evaluation, CBI running at the bedside at lower rate pink-colored urine noticed has not cleared totally No active chest pain No abdominal tenderness Lower extremity pain without edema Drooling of saliva noted from right angle of mouth Urinary Catheter Management^: Prieto: Cath Placed During This Visit: yes Reason for Continuing Indwelling Catheter: Acute Urinary Retention or Obstruction Urinary Catheter Date of Insertion: 09/08/20 Urinary Catheter Time of Insertion: 02:15 3-way Urethral CBI: Cath Placed During This Visit: yes, but has since been removed by the nurse Reason for Continuing Indwelling Catheter: Acute Urinary Retention or Obstruction Urinary Catheter Date of Insertion: 09/09/20 Urinary Catheter Time of Insertion: 16:40 Date Urinary Catheter Removed: 09/09/20 Time Urinary Catheter Discontinued: 16:35 Data : 09/10/20 05:25 09/10/20 05:25 Micro: Microbiology 09/09/20 18:11 Blood Culture - Preliminary Blood SPECIMEN COLLECTED 09/09/20 18:00 Blood Culture - Preliminary Blood SPECIMEN COLLECTED A&P Assessment and plan (1) Impaired cognitive ability: Status: Acute (2) Bilateral hydronephrosis: Status: Acute (3) Urinary retention: Status: Acute (4) Gross hematuria: Status: Acute Additional A&P Information Everardo hematuria Status post 1 unit PRBC Hemoglobin slightly drifting down, would like to monitoring him for at least 1 more day, his urine bag has not totally cleared yet Status post cystoscopy on 09/[address] Simmons please read his operative notes for details Bilateral hydronephrosis and urine retention Chronic flaccid bladder, he will need to follow-up with his urology at [facility] to evaluate if he would benefit from a suprapubic catheter for now he will be discharged with his indwelling catheter, considering cognitive impairment he cannot do SCIC Fever: Most likely erroneous set of vitals patient did not require any Tylenol, he has stayed afebrile, no leukocytosis I will discontinue ceftriaxone for now, we are trying to set up his second dose of vaccine/COVID-19 today, DVT prophylaxis: Contraindicated On SCDs Considering hyperglycemia I have started D5 NS at 75 mill per hour Will be discharged tomorrow if hemoglobin stays stable Attestations Medical Necessity Statement*: Anticipating discharge tomorrow Time Spent in Patient Care: 15 to 30 minutes Coding Level of Care Code Acute Model And Dye Person for g Fwd Diagnoses Impaired cognitive ability R41.89 Bilateral hydronephrosis N13.30 Urinary retention R33.9 Gross hematuria R31.0
[2020-09-10 18:10] LABS: Hemoglobin 8.2 g/dL (11.7-16.6)
--- NOTE | 2020-09-10 19:13 | PC.NURSE ---
Date of first covid vaccine verified 08/12/20 with Adrianna. Second covid vaccine given today, 09/10/20.
[2020-09-11] VITALS (8 sets, daily range): BP systolic 102–111; BP diastolic 64–73; PULSE 88–104; RESP 14–18; TEMP 36.3–37.1; O2SAT 99–100
[2020-09-11] MEDS: dextrose 5%-sod chloride 0.9% 1,000 ML 75 ML IV ×2 (04:33→21:30)
--- NOTE | 2020-09-11 06:09 | PC.NURSE ---
SHIFT SUMMARY Has had a quiet night. Has not actually slept much but has been awake watchingTV. Has been heard laughing at shows. Asks about going home. IV infusing without difficulty at 75ml/hr rate. Prieto with CBI running at slow drip. Urine clear to pink with occ blood streaking noted in tubing. No clots seen. No c/o pain.
[2020-09-11 07:30] LABS: Hematocrit 24.6 % (42.0-52.0); Hemoglobin 8.4 g/dL (11.7-16.6)
[2020-09-11] MEDS: tamsulosin 0.4 mg Capsule PO (08:55)
--- NOTE | 2020-09-11 09:05 | PM.PN ---
Subjective Subjective: Interval history: Urology follow-up: Postop day #2 cystoscopy clot evacuation. Urine has remained [place] with light CBI. Reviewed with nursing staff to manually irrigate this morning and try to taper CBI off completely. If that is accomplished hopefully he can be discharged tomorrow He will need to maintain Prieto catheter at discharge. Will need to follow-up with his routine urology service I think at [facility]. He is here locally just on a respite type care from his usual residential care service. If for some reason he stays in the area longer I will be happy to follow here as long as necessary. I spoke with the nursing staff who states that he did in fact receive his SECOND MODERNA injection yesterday. Reviewed that they will need formal documentation to carry with him at discharge for confirmation of fully vaccinated status. Vitals/I&O/Wt Last Vital Signs Temp 98.2 F 09/11/20 07:47 Pulse 102 H 09/11/20 07:47 Resp 14 09/11/20 07:47 BP 111/64 09/11/20 07:47 Pulse Ox 99 09/11/20 07:47 09/10/20 09/11/20 09/11/20 22:59 06:59 14:59 Intake Total 1120 / 2120 200 / 2320 480 / 480 Output Total 0 / 0 Balance 1120 / 2120 200 / 2320 480 / 480 Physical Exam Const: COMMON NORMALS: no acute distress, alert and well nourished GENERAL APPEARANCE: well kempt and well developed HENMT: COMMON NORMALS: normocephalic and atraumatic HEAD & SCALP: normocephalic and atraumatic Eye: COMMON NORMALS: conjunctivae normal and no scleral icterus CONJUNCTIVA: Yes conjunctivae normal Neck/C-Spine: COMMON NORMALS: full ROM GENERAL: Yes normal visual inspection Resp: COMMON NORMALS: normal respiratory effort EFFORT & INSPECTION: No labored and No Actively coughing : BLADDER/KIDNEY EXAM: Yes catheter in place Catheter type (Male): other (Urine is light pink with minimal CBI running) Neuro: SENSORIUM/ORIENTATION: Yes alert Psych: APPEARANCE: Yes grossly normal and Yes well kempt ATTITUDE: Yes calm Skin: COMMON NORMALS: no rashes or lesions noted and no jaundice GENERAL SKIN EXAM: no rashes or lesions noted Urinary Catheter Management^: Prieto: Cath Placed During This Visit: yes Reason for Continuing Indwelling Catheter: Acute Urinary Retention or Obstruction Urinary Catheter Date of Insertion: 09/08/20 Urinary Catheter Time of Insertion: 02:15 3-way Urethral CBI: Cath Placed During This Visit: yes, but has since been removed by the nurse Reason for Continuing Indwelling Catheter: Acute Urinary Retention or Obstruction Urinary Catheter Date of Insertion: 09/09/20 Urinary Catheter Time of Insertion: 16:40 Date Urinary Catheter Removed: 09/09/20 Time Urinary Catheter Discontinued: 16:35 Data : 09/11/20 07:05 09/10/20 05:25 Micro: Microbiology 09/09/20 18:11 Blood Culture - Preliminary Blood NEGATIVE TO DATE 09/09/20 18:00 Blood Culture - Preliminary Blood NEGATIVE TO DATE A&P Assessment and plan (1) Urinary retention: Chronically distended bladder with bilateral hydronephrosis likely neurogenic in origin Status: Acute (2) Gross hematuria: Improved but still requiring low flow CBI. Instructed nursing staff to manually irrigate and try to wean CBI today. He will need to be discharged with Prieto catheter in place Status: Acute (3) Bilateral hydronephrosis: Secondary to bladder distention from incomplete emptying. Status: Acute (4) Impaired cognitive ability: Status: Acute Attestations Medical Necessity Statement*: See attending Coding Level of Care Code Acute Plate Cleaner for Jovanny Ceja Diagnoses Urinary retention R33.9 Gross hematuria R31.0 Bilateral hydronephrosis N13.30 Impaired cognitive ability R41.89
--- NOTE | 2020-09-11 13:55 | PM.PN ---
Subjective Subjective: Interval history: Status post second dose of COVID-19 vaccine which was given yesterday Light pink urine color today hoping to discharge him tomorrow if hemoglobin stays stable Talked with his mother as well and notified that his care facility should make an appointment at [facility] urology for evaluation of suprapubic catheter because of his chronic bladder distention Vitals/I&O/Wt Last Vital Signs Temp 97.3 F L 09/11/20 11:59 Pulse 97 09/11/20 11:59 Resp 14 09/11/20 11:59 BP 102/64 09/11/20 11:59 Pulse Ox 100 09/11/20 11:59 09/10/20 09/11/20 09/11/20 22:59 06:59 14:59 Intake Total 1120 / 2120 200 / 2320 480 / 480 Output Total 1250 / 1250 Balance 1120 / 2120 200 / 2320 -770 / -770 Physical Exam Narrative: EXAM NARRATIVE: He was lying comfortably in his bed no pain in his hand today S1, S2 sinus rhythm Clinically looks euvolemic Abdomen soft No extremity no edema Prieto catheter draining light pink urine EOMI, PERRLA no neurological deficit Cognitive impairment Urinary Catheter Management^: Prieto: Cath Placed During This Visit: yes Reason for Continuing Indwelling Catheter: Acute Urinary Retention or Obstruction Urinary Catheter Date of Insertion: 09/08/20 Urinary Catheter Time of Insertion: 02:15 3-way Urethral CBI: Cath Placed During This Visit: yes, but has since been removed by the nurse Reason for Continuing Indwelling Catheter: Acute Urinary Retention or Obstruction Urinary Catheter Date of Insertion: 09/09/20 Urinary Catheter Time of Insertion: 16:40 Date Urinary Catheter Removed: 09/09/20 Time Urinary Catheter Discontinued: 16:35 Data : 09/11/20 07:05 09/10/20 05:25 Micro: Microbiology 09/09/20 18:11 Blood Culture - Preliminary Blood NEGATIVE TO DATE 09/09/20 18:00 Blood Culture - Preliminary Blood NEGATIVE TO DATE A&P Assessment and plan (1) Impaired cognitive ability: Status: Acute (2) Bilateral hydronephrosis: Status: Acute (3) Urinary retention: Status: Acute (4) Gross hematuria: Status: Acute Additional A&P Information Everardo hematuria Today Prieto catheter draining light pink urine Status post cystoscopy Received 1 unit of PRBC Current hemoglobin stable at 8.4 hemodynamically stable Plan to discharge him tomorrow if urine color improved and CBI turned off Status post second dose of COVID-19 vaccine yesterday Talked with his mother today We will need to arrange follow-up at [facility] urology for suprapubic catheter evaluation He will be discharged with Prieto catheter DVT prophylaxis SCDs Regular diet Full code Attestations Medical Necessity Statement*: Discharge tomorrow to care facility Time Spent in Patient Care: 15 to 30 minutes Coding Level of Care Code Acute Dairy Feed Worker for Chg Fwd Diagnoses Impaired cognitive ability R41.89 Bilateral hydronephrosis N13.30 Urinary retention R33.9 Gross hematuria R31.0
--- NOTE | 2020-09-11 14:16 | DCPLANNER ---
Discussed the IM with Pt's Mom via the phone - Tasha Gillette - [phone]. No questions.
[2020-09-12] VITALS (12 sets, daily range): BP systolic 100–138; BP diastolic 64–79; PULSE 86–106; RESP 14–18; TEMP 36.4–37.6; O2SAT 96–99
[2020-09-12 06:32] LABS: Hematocrit 21.5 % (42.0-52.0); Hemoglobin 7.2 g/dL (11.7-16.6)
--- NOTE | 2020-09-12 08:03 | P.PN_ITS ---
Subjective Subjective: Interval history: Urology follow-up: Urine has cleared. CBI turned off. I think he is ready for discharge at any point. Unlikely that his urine will stay completely clear but some mild hematuria as long as the catheter is functioning well is okay. Regarding long-term follow-up: It has been reported that he follows with [facility] urology. He has had a catheter in and out at times but it appears that he is developed a large flaccid bladder with upper urinary tract dilation and probably needs chronic drainage. Options include: 1. Suprapubic tube 2. Indwelling urethral Prieto catheter 3. Clean intermittent catheterization (not likely to happen given his circumstances) I will be available if he stays in this area for further urologic intervention as necessary. Vitals/I&O/Wt Last Vital Signs Temp 99.3 F 09/12/20 04:40 Pulse 89 09/12/20 04:40 Resp 18 09/12/20 04:40 BP 105/71 09/12/20 04:40 Pulse Ox 99 09/12/20 04:40 09/11/20 09/12/20 09/12/20 22:59 06:59 14:59 Intake Total 1440 / 1920 Balance 1440 / 670 Physical Exam Const: COMMON NORMALS: no acute distress, alert and well nourished GENERAL APPEARANCE: well kempt and well developed Neck/C-Spine: COMMON NORMALS: full ROM Resp: COMMON NORMALS: normal respiratory effort EFFORT & INSPECTION: No labored and No Actively coughing Neuro: COMMON NORMALS: no focal motor deficits SENSORIUM/ORIENTATION: Yes alert Psych: APPEARANCE: Yes grossly normal and Yes well kempt ATTITUDE: Yes calm Skin: COMMON NORMALS: no rashes or lesions noted and no jaundice GENERAL SKIN EXAM: no rashes or lesions noted Urinary Catheter Management^: Prieto: Cath Placed During This Visit: yes Reason for Continuing Indwelling Catheter: Acute Urinary Retention or Obstruction Urinary Catheter Date of Insertion: 09/08/20 Urinary Catheter Time of Insertion: 02:15 3-way Urethral CBI: Cath Placed During This Visit: yes, but has since been removed by the nurse Reason for Continuing Indwelling Catheter: Acute Urinary Retention or Obstruction Urinary Catheter Date of Insertion: 09/09/20 Urinary Catheter Time of Insertion: 16:40 Date Urinary Catheter Removed: 09/09/20 Time Urinary Catheter Discontinued: 16:35 Data : 09/12/20 06:11 09/10/20 05:25 A&P Assessment and plan (1) Urinary retention: Chronically distended bladder with bilateral hydronephrosis likely neurogenic in origin Will need follow-up at his primary urology service for strategy related to long- term bladder management. Status: Acute (2) Gross hematuria: Urine is clear this morning with no CBI. I think he safe for discharge now Status: Acute (3) Bilateral hydronephrosis: Secondary to bladder distention from incomplete emptying. Appears to be a chronic problem. Status: Acute (4) Impaired cognitive ability: Very pleasant to work with though. Very cooperative with requests Status: Acute Attestations Medical Necessity Statement*: See attending Coding Level of Care Code Acute Sheeting Puller for Jovanny Ceja Diagnoses Urinary retention R33.9 Gross hematuria R31.0 Bilateral hydronephrosis N13.30 Impaired cognitive ability R41.89
[2020-09-12] MEDS: tamsulosin 0.4 mg Capsule PO (08:43)
[2020-09-12 10:38] LABS: Hemoglobin 6.9 g/dL (11.7-16.6)
[2020-09-12 11:23] LABS: Hematocrit 20.3 % (42.0-52.0)
[2020-09-12] MEDS: dextrose 5%-sod chloride 0.9% 1,000 ML 75 ML IV (11:26)
--- NOTE | 2020-09-12 13:22 | P.PN_ITS ---
Subjective Subjective: Interval history: Patient was seen and examined this morning noticed hemoglobin 6.9 today requested 1 unit PRBC His urine has cleared Prieto catheter currently draining urine without any signs of hematuria Vitals/I&O/Wt Last Vital Signs Temp 97.9 F 09/12/20 12:00 Pulse 100 09/12/20 12:00 Resp 18 09/12/20 12:00 BP 100/65 09/12/20 12:00 Pulse Ox 97 09/12/20 12:00 09/11/20 09/12/20 09/12/20 22:59 06:59 14:59 Intake Total 1440 / 1920 1480 / 1480 Balance 1440 / 670 1480 / 1480 Physical Exam Narrative: EXAM NARRATIVE: Patient was awake alert Able to make eye contact Has been laughing S1, S2 Abdomen soft Prieto catheter draining urine without any signs of hematuria Lower extremity no edema No new neurological deficits No acute respite distress saturating well on room air Urinary Catheter Management^: Prieto: Cath Placed During This Visit: yes Reason for Continuing Indwelling Catheter: Acute Urinary Retention or Obstruction Urinary Catheter Date of Insertion: 09/08/20 Urinary Catheter Time of Insertion: 02:15 3-way Urethral CBI: Cath Placed During This Visit: yes, but has since been removed by the nurse Reason for Continuing Indwelling Catheter: Acute Urinary Retention or Obstruction Urinary Catheter Date of Insertion: 09/09/20 Urinary Catheter Time of Insertion: 16:40 Date Urinary Catheter Removed: 09/09/20 Time Urinary Catheter Discontinued: 16:35 Data : 09/12/20 10:00 09/10/20 05:25 A&P Assessment and plan (1) Impaired cognitive ability: Status: Acute (2) Bilateral hydronephrosis: Status: Acute (3) Urinary retention: Status: Acute (4) Gross hematuria: Status: Acute Additional A&P Information Everardo hematuria CBI has been turned off Acute blood loss anemia Status post 1 unit PRBC, will request another unit today hemoglobin 6.9, no active hematuria noted He will need to follow-up with [facility] urology for possible suprapubic catheter evaluation He will go back to care facility once hemoglobin is stable In case of any acute emergencies Dr. Simmons is available Will discharge after blood transfusion Attestations Medical Necessity Statement*: Discharge after blood transfusion Time Spent in Patient Care: less than 15 minutes Coding Level of Care Code Acute Line Supply for Chg Fwd Diagnoses Impaired cognitive ability R41.89 Bilateral hydronephrosis N13.30 Urinary retention R33.9 Gross hematuria R31.0
--- NOTE | 2020-09-12 13:40 | P.DS_ITS ---
Discharge Providers Date of Admission: 09/08/20 01:52 Date of Discharge: September 12, 2020 Attending Provider at Admission: Thao Ramos Attending Provider at Discharge: Carlos Landaverde MD Diagnoses at Discharge Discharge Diagnosis (1) Impaired cognitive ability: Status: Acute (2) Bilateral hydronephrosis: Status: Acute (3) Urinary retention: Status: Acute (4) Gross hematuria: Status: Acute Reason for Visit Reason for Visit: HEMORRHAGE FROM THE GENITALS Hospital Course Hospital Course Urologic Hospital course summary: Admitted with a very distended bladder and large amount of clot in the bladder. Additional findings included bilateral hydronephrosis likely to bladder outlet obstruction/dysfunction. Does have a history of urologic care at [facility]. 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 Care in the hospital from urologic perspective included a large bore catheter with aggressive manual irrigation followed by continuous bladder irrigation. Clot evacuation in the OR 09/09 was performed and there was no other gross pathology identified on cystoscopy. Urine remained pink and eventually cleared with low flow CBI. He was deemed to be a good candidate for discharge back to his usual status with Prieto catheter in place on 09/12/2020 Patient received total 2 units of PRBC for acute blood loss anemia due to hematuria. He will be discharged with a prescription to check CBC after [address] Simmons available if urological intervention needed if he stays in [place] otherwise recommended follow-up with [facility] urology for evaluation of suprapubic catheter versus chronic indwelling catheter Physical Exam Narrative: EXAM NARRATIVE: Patient was awake alert Able to make eye contact Has been laughing S1, S2 Abdomen soft Prieto catheter draining urine without any signs of hematuria Lower extremity no edema No new neurological deficits No acute respite distress saturating well on room air Urinary Catheter Management^: Prieto: Cath Placed During This Visit: yes Reason for Continuing Indwelling Catheter: Acute Urinary Retention or Obstruction Urinary Catheter Date of Insertion: 09/08/20 Urinary Catheter Time of Insertion: 02:15 3-way Urethral CBI: Cath Placed During This Visit: yes, but has since been removed by the nurse Reason for Continuing Indwelling Catheter: Acute Urinary Retention or Obstruction Urinary Catheter Date of Insertion: 09/09/20 Urinary Catheter Time of Insertion: 16:40 Date Urinary Catheter Removed: 09/09/20 Time Urinary Catheter Discontinued: 16:35 Discharge Data Data Completed and Pending: Completed Studies During Hospitalization Category Date Time Status CT abdomen pelvis w con* 53623 Stat Cat Scan 09/08/20 00:[address] lumbar spine w o con* [id number] Routi ne Cat Scan 09/08/20 15:[address] thoracic spin wo con* [id number] Rout ine Cat Scan 09/08/20 15:41 Completed XR chest 1V ray ble [id number] Routine Exams 09/09/20 15:10 Completed Pending at discharge Category Date Time Status Blood Culture Sta t Lab 09/09/20 18:11 Results Urine Culture Sta t Lab 09/11/20 14:30 Received Labs from last 24 hours 09/12/20 09/12/20 09/12/20 10:00 10:00 06:11 Hgb 6.9 L 7.2 L Hct 20.3 L* 21.5 L Blood Type A Negative Rho(D) Type Negative / 0 Antibody Screen Negative Crossmatch See Detail 09/08/20 00:32 Hgb Hct Blood Type Rho(D) Type Antibody Screen Crossmatch See Detail Vitals: Last Vital Signs Temp 97.9 F 09/12/20 12:00 Pulse 100 09/12/20 12:00 Resp 18 09/12/20 12:00 BP 100/65 09/12/20 12:00 Pulse Ox 97 09/12/20 12:00 Discharge Plan Discharge Condition: Stable Prescriptions: Continued Aqua Tears 1 drp ophthalmic (eye) BID RF: 0 lamotrigine 200 mg tablet 200 mg PO BID@, RF: 0 doxepin 75 mg capsule 75 mg PO DAILY@20 RF: 0 lithium carbonate 150 mg capsule 150 mg PO DAILY@20 RF: 0 quetiapine 100 mg tablet 150 mg PO DAILY@20 RF: 0 tamsulosin 0.4 mg capsule 0.8 mg PO DAILY@20 RF: 0 lithium carbonate 300 mg capsule 300 mg PO BID@08,20 RF: 0 benztropine 1 mg tablet 1 mg PO BID@08,20 RF: 0 DOK 100 mg capsule 200 mg PO BID@08,20 RF: 0 omeprazole 20 mg capsule,delayed release(DR/EC) 20 mg PO DAILY@08 RF: 0 polyethylene glycol 3350 17 gram/dose powder 17 g PO DAILY@08 RF: 0 finasteride 5 mg tablet 5 mg PO DAILY@08 RF: 0 fenofibrate nanocrystallized 48 mg tablet 48 mg PO DAILY@08 RF: 0 paliperidone 3 mg tablet extended release 24hr 3 mg PO DAILY@08 RF: 0 paliperidone 9 mg tablet extended release 24hr 9 mg PO DAILY@08 RF: 0 levocetirizine 5 mg tablet 5 mg PO DAILY@20 RF: 0 Discontinued Aspir-81 81 mg Tablet,Delayed Release (Dr/Ec) 81 mg PO DAILY@08 RF: 0 Referrals: [facility] [Provider Group] (Report was that he follows with [facility] urology in [place]. History of intermittent retention likely flaccid neurogenic bladder with discovery of upper urinary tract dilation at admission August 2020 [facility] for gross hematuria. Large amount of clot evacuated. Cleared eventually with CBI. Given the bladder distention and upper urinary tract dilation I think he needs long-term bladder management which should at least include consideration of suprapubic tube) Discharge Diet: Regular Discharge Activity: Wheelchair as instructed and As per PT/OT instructions Patient Instructions: Opioid Safety Activity Restrictions/Additional Instructions: Urology instructions: Manually irrigate catheter as needed. Encourage increased fluid intake to keep urine clear. Please follow-up with [facility] urology for evaluation of suprapubic catheter In case you stay in this area and decided to use Dr. Simmons services he is available Regarding long-term follow-up: It has been reported that he follows with [facility] urology. He has had a catheter in and out at times but it appears that he is developed a large flaccid bladder with upper urinary tract dilation and probably needs chronic drainage. Options include: 1. Suprapubic tube 2. Indwelling urethral Prieto catheter 3. Clean intermittent catheterization (not likely to happen given his circumstances) Discharge Attestations Time Spent in Discharge Care*: less than 30 min Quality Metrics Clinical Quality Measures During this hospital stay, did patient experience: None Coding Level of Care Code Acute Chg FW DC note Diagnoses Impaired cognitive ability R41.89 Bilateral hydronephrosis N13.30 Urinary retention R33.9 Gross hematuria R31.0
[2020-09-12] MEDS: sodium chloride 0.9% (100 ml) 100 ML 125 ML (14:44)
== END 2020-09-12 18:08 | disposition home or self-care (01) | DRG 696 ==
LOC: ER 01:52 → ER IP 07:36 → MEDSURG 15:00
PROVIDERS: Urology; Admitting Provider Hospitalist; Emergency Provider Emergency Medicine; Visit Provider Internal Medicine
PROC: 0T5B8ZZ Destruction of Bladder, Via Natural or Artificial Opening Endoscopic (ICD-10-PCS; principal; 2020-09-09 15:15)
PROC: 0TJB8ZZ Inspection of Bladder, Via Natural or Artificial Opening Endoscopic (ICD-10-PCS; CPT 52000; 2020-09-09 15:15)
DX: R31.0 Gross hematuria (principal); D62 Acute posthemorrhagic anemia; N32.89 Other specified disorders of bladder; R41.89 Other symptoms and signs involving cognitive functions and awareness; K21.9 Gastro-esophageal reflux disease without esophagitis; Z87.442 Personal history of urinary calculi; N13.30 Unspecified hydronephrosis; N13.8 Other obstructive and reflux uropathy; R33.8 Other retention of urine; M25.541 Pain in joints of right hand; W18.30XA Fall on same level, unspecified, initial encounter; N39.0 Urinary tract infection, site not specified; N31.9 Neuromuscular dysfunction of bladder, unspecified
CPT/HCPCS: 36415; 36430; 51702; 71045; 72128; 72131; 74177; 80048; 80053; 85014; 85018; 85025; 85610; 85730; 86850; 86900; 86920; 87040; 87086; 96360; 96361; 99285; J0696; J2704; J7030; P9040; Q9967